=== PATIENT | male | born 1995 | race Two or more races ===

== ENCOUNTER 2021-05-29 11:49 | Emergency (ER) | payer OTHER ==
[~2021-05-29] VITALS: Ht 177.8 cm; Wt 72.6 kg
[2021-05-29 12:16] VITALS: BP 116/72
--- NOTE | 2021-05-29 12:16 | NUR ---
VISUAL ACUITY BEING TESTED
--- NOTE | 2021-05-29 12:24 | NUR ---
[employer]: SILVERIO [id number] AND COARL [id number] SPEAKING WITH PT.
--- NOTE | 2021-05-29 12:27 | NUR ---
DR BO AT THE BEDSIDE
[2021-05-29] MEDS ORDERED: NAPR-1009 PO (12:40)
--- NOTE | 2021-05-29 12:54 | NUR ---
Patient discharged to home in stable condition. Written and verbal after care instructions given. Patient verbalizes understanding of instruction. PT ambulatory with a steady gait
== END 2021-05-29 13:07 | disposition home or self-care (01) ==
LOC: ER 11:52
DX: H57.12 Ocular pain, left eye (principal); H57.89 Other specified disorders of eye and adnexa; Y08.89XA Assault by other specified means, initial encounter; Y93.89 Activity, other specified; Y92.89 Other specified places as the place of occurrence of the external cause; Y99.8 Other external cause status